=== PATIENT | female | born 1995 ===

== ENCOUNTER 2016-08-26 12:31 | Emergency (ER) | payer SELFPAY ==
[2016-08-26 12:44] VITALS: BP 117/80
--- NOTE | 2016-08-26 16:07 | Emergency Department Report ---
<LEANDRO ASHBY - Last Filed: 08/26/16 17:49> ED Chest Pain HPI - General Chief Complaint: Chest Pain Stated Complaint: CHEST PAIN Time Seen by Provider: 08/26/16 15:49 Source: patient Mode of arrival: Ambulatory Limitations: No Limitations - History of Present Illness Initial Comments: 21-year-old female past medical history obesity presents with complaint of anterior chest pain. Patient is a nonsmoker complains of anterior chest pain by the sternal border. Pain is worse with movement. Denies any smoking denies any nausea vomiting no fever no chills. States she feels slightly congested. MD Complaint: chest pain Onset/Timin -: days(s) Onset: during rest Pain Location: substernal Pain Radiation: none Severity: moderate Severity scale (0 -10): 6 Quality: aching Consistency: intermittent Context: recent illness - Related Data Previous Rx's Medication Instructions Recorded Last Taken Type ALBUTEROL Inhaler [ProAir HFA 2 puff IH QID PRN #1 inhalation 08/26/16 Unknown Rx Inhaler] Naproxen [Naprosyn TAB] 500 mg PO BID PRN #20 tablet 08/26/16 Unknown Rx Phenylephrine/Dm/Acetaminop/GG 10 ml PO Q4H PRN #1 liquid 08/26/16 Unknown Rx [Mucinex Wdxt-Yxn-Zazfwfdueo Lq] Allergies Allergy/AdvReac Type Severity Reaction Status Date / Time No Known Allergies Allergy Verified 12/26/15 02:14 GINO score - Gino Score Age > 65: (0) No Aspirin use within the Past 7 Days: (0) No 3 or more CAD Risk Factors: (0) No 2 or more Angina events in past 24 hrs: (0) No Known CAD with more than 50% Stenosis: (0) No Elevated Cardiac Markers: (0) No ST Deviation Greater than 0.5mm: (0) No GINO Score: 0 ED Review of Systems ROS: Stated complaint: CHEST PAIN Other details as noted in HPI Constitutional: denies: chills, fever Eyes: denies: eye pain, eye discharge, vision change ENT: denies: ear pain, throat pain Respiratory: denies: cough, shortness of breath, wheezing Cardiovascular: denies: chest pain, palpitations Endocrine: no symptoms reported Gastrointestinal: denies: abdominal pain, nausea, diarrhea Genitourinary: denies: urgency, dysuria, discharge Musculoskeletal: denies: back pain, joint swelling, arthralgia Skin: denies: rash, lesions Neurological: denies: headache, weakness, paresthesias Psychiatric: denies: anxiety, depression Hematological/Lymphatic: denies: easy bleeding, easy bruising ED Past Medical Hx - Past Medical History Previous Medical History?: No - Surgical History Past Surgical History?: No - Social History Smoking Status: Never Smoker Substance Use Type: Alcohol - Medications Home Medications: Home Medications Medication Instructions Recorded Confirmed Last Taken Type ALBUTEROL Inhaler [ProAir HFA 2 puff IH QID PRN #1 inhalation 08/26/16 Unknown Rx Inhaler] Naproxen [Naprosyn TAB] 500 mg PO BID PRN #20 tablet 08/26/16 Unknown Rx Phenylephrine/Dm/Acetaminop/GG 10 ml PO Q4H PRN #1 liquid 08/26/16 Unknown Rx [Mucinex Frsg-Pdh-Xdgepbsluf Lq] ED Physical Exam - General Limitations: No Limitations General appearance: alert, in no apparent distress - Head Head exam: Present: atraumatic, normocephalic - Eye Eye exam: Present: normal appearance, PERRL, EOMI - ENT ENT exam: Present: mucous membranes moist - Neck Neck exam: Present: normal inspection - Respiratory Respiratory exam: Present: normal lung sounds bilaterally, chest wall tenderness (reproducible chest wall tenderness parasternally). Absent: respiratory distress - Cardiovascular Cardiovascular Exam: Present: regular rate, normal rhythm. Absent: systolic murmur, diastolic murmur, rubs, gallop - GI/Abdominal GI/Abdominal exam: Present: soft, normal bowel sounds - Extremities Exam Extremities exam: Present: normal inspection - Back Exam Back exam: Present: normal inspection - Neurological Exam Neurological exam: Present: alert, oriented X3 - Psychiatric Psychiatric exam: Present: normal affect, normal mood - Skin Skin exam: Present: warm, dry, intact, normal color. Absent: rash ED Course Vital Signs 08/26/16 12:42 Temperature 98.3 F Pulse Rate 90 Respiratory 16 Rate Blood Pressure 117/80 O2 Sat by Pulse 99 Oximetry ED Medical Decision Making - Lab Data Result diagrams: 08/26/16 16:05 08/26/16 16:05 - Medical Decision Making A/P: Chest wall tenderness, costochondritis 1-EKG, troponin, labs, chest x-ray within normal limits 2-HEart Score 0, perc score 0, Wells score for PE 0 3-follow-up with primary care doctor 4-naproxen, albuterol, Mucinex Critical care attestation.: If time is entered above; I have spent that time in minutes in the direct care of this critically ill patient, excluding procedure time. ED Disposition Disposition: DISCHARGED TO HOME OR SELFCARE Is pt being admited?: No Does the pt Need Aspirin: No Condition: Stable Instructions: Chest Pain (ED), Costochondritis (ED) Prescriptions: ALBUTEROL Inhaler [ProAir HFA Inhaler] 2 puff IH QID PRN #1 inhalation PRN Reason: Shortness Of Breath Naproxen [Naprosyn TAB] 500 mg PO BID PRN #20 tablet PRN Reason: Pain Phenylephrine/Dm/Acetaminop/GG [Mucinex Xihl-Vau-Zqcjqdfnvg Lq] 10 ml PO Q4H PRN #1 liquid PRN Reason: Cough Referrals: HAILE SOW MD [Staff Physician] - 3-5 Days [facility] [Provider Group] - 3-5 Days Forms: Accompanied Note, Work/School Release Form(ED) Time of Disposition: 17:55 <VANESSA RUEDA - Last Filed: 08/26/16 19:44> ED Medical Decision Making - Lab Data Result diagrams: 08/26/16 16:05 08/26/16 16:05
[2016-08-26] MEDS ORDERED: XOPENEX IH ONE (16:10)
[2016-08-26 16:23] LABS: Basophils % (Auto) 0.3 % (0.0-1.8); Eosinophils % (Auto) 0.7 % (0.0-4.3); Hematocrit 38.9 % (30.3-42.9); Hemoglobin 13.1 gm/dl (10.1-14.3); Mean Corpuscular HGB Conc 34 % (30-34); Mean Corpuscular Hemoglobin 29 pg (28-32); Mean Corpuscular Volume 85 fl (79-97); Platelet Count 310 K/mm3 (140-440); Red Blood Count 4.58 M/mm3 (3.65-5.03); Red Cell Distribution Width 13.3 % (13.2-15.2); White Blood Count 7.5 K/mm3 (4.5-11.0)
[2016-08-26 16:40] LABS: Anion Gap 18 mmol/L; Blood Urea Nitrogen 8 mg/dL (7-17); Calcium 9.5 mg/dL (8.4-10.2); Carbon Dioxide 26 mmol/L (22-30); Glucose 106 mg/dL (65-100); Sodium 141 mmol/L (137-145)
--- NOTE | 2016-08-26 17:46 | XRay Report ---
FINAL REPORT EXAM: XR CHEST ROUTINE 2V HISTORY: chest pain TECHNIQUE: Two view chest PA and lateral PRIORS: None. FINDINGS: Cardiac and mediastinal contours are unremarkable. No focal pulmonary infiltrate is identified. No pleural fluid collection seen. Pulmonary vasculature is unremarkable. IMPRESSION: Negative two-view chest
== END 2016-08-26 17:50 | disposition home or self-care (01) ==
LOC: ED 12:31
DX: R07.2 Precordial pain (principal)
CPT/HCPCS: 36415; 71020; 80048; 84484; 85025; 93005; 93010